=== PATIENT | female | born 1995 | race American Indian/Alaskan Native ===

== ENCOUNTER 2018-04-26 11:52 | Outpatient (CLI) | payer MEDICAID ==
[2018-04-26] MEDS ORDERED: LACTATED RINGERS 1,000 ML IV ONE (12:19)
[2018-04-26 12:46] LABS: Bacteria,Urine 1+ /HPF (Negative); Bilirubin,Urine NEG (Negative); Blood,Urine NEG (Negative); Color,Urine Yellow (Yellow); Mucus,Urine FEW /HPF; Protein,Urine <15 mg/dL mg/dL (Negative); Urobilinogen,Urine < 2.0 mg/dL (<2.0)
[2018-04-26 16:33] VITALS: BP 113/58
--- NOTE | 2018-04-28 06:34 | Ultrasound Report ---
PROCEDURE: US OB FOLLOW UP TECHNIQUE: Real-time sonography performed for focused follow-up or re-evaluation of each size/ growth parameters and amniotic fluid or re-evaluation of suspected or confirmed abnormality on prior imaging. HISTORY: JOSÉ MANUEL, PRESENTATION, EFW, COMPARISONS: None . FINDINGS: FETUS IUP: Single living intrauterine . Position: Cephalic . Amniotic fluid volume: Normal . Heart rate and rhythm: 126 BPM, Regular . MEASUREMENTS BPD: 7.3 cm corresponding to 29 weeks and 2 days . HC: 26.7 cm corresponding to 29 weeks and 1 day . AC: 26.8 cm corresponding to 30 weeks and 6 days . FL: 5.6 cm corresponding to 29 weeks and 4 days . Mean Gestational Age (composite criteria): 29 weeks 5 days . Ratio biometry: Normal . Estimated Weight: 1522 grams Estimated Due Date (earliest scan): 07/07/2018 . IMPRESSION: 1. Single living intrauterine gestation at approximately 29 weeks and 5 days . 2. EDC by US 07/07/2018 . This document is electronically signed by Efrain Myrick MD., April 28 2018 06:31:19 AM ET
== END 2018-04-26 17:15 | disposition home or self-care (01) ==
LOC: TRG 11:52
PROVIDERS: ATTEND Obstetrics & Gynecology
DX: O47.03 False labor before 37 completed weeks of gestation, third trimester (principal); O99.513 Diseases of the respiratory system complicating pregnancy, third trimester; J45.909 Unspecified asthma, uncomplicated; Z3A.28 28 weeks gestation of pregnancy
CPT/HCPCS: 59025; 76816; 81001; 96360; J7120